=== PATIENT | male | born 1975 | race Two or more races ===

== ENCOUNTER → 2024-04-28 | Emergency (ER) | payer OTHER ==
[~2024-04-28] VITALS: Ht 177.8 cm; Wt 94.8 kg
[~2024-04-28] MED LIST: CEFTRIAXONE SODIUM 1,000 MG VIAL IV STA; DEXAMETHASONE SODIUM PHOSPHATE 4 MG/ML VIAL IV STA; DOVATO 50-3001 EACH PO; DUI500 PO
[2024-04-28 12:23] LABS: HEMATOCRIT 43.9 % (39.0-48.0); HEMOGLOBIN 15.2 g/dL (13-16.00); MEAN CELL VOLUME 88.6 fL (80.0-100.00); MEAN CORPUSCULAR HEMOGLOBIN 30.7 pg (27.00-32.0); MEAN CORPUSCULAR HGB CONC 34.7 g/dl (32.0-36.0); PLATELET COUNT 289 K/uL (150-450); RED BLOOD COUNT 4.96 M/uL (4.00-6.00)
== END | disposition home or self-care (01) ==
LOC: ER 10:42
PROVIDERS: Emergency Medicine
DX: J03.90 Acute tonsillitis, unspecified (principal); H66.91 Otitis media, unspecified, right ear; Z20.822 Contact with and (suspected) exposure to COVID-19